=== PATIENT | female | born 1965 | race Caucasian/White ===

== ENCOUNTER 2021-11-20 15:28 | Outpatient (CLI) | payer BC, SELFPAY ==
--- NOTE | 2021-11-20 | US_ITS ---
WS: [id number] INDICATION: RIGHT medial lower leg swelling and pain TECHNIQUE: Ultrasound soft tissue area of concern FINDINGS: The area of concern, RIGHT lower leg medially, there is a short segment of suspected superf icial thrombus. This is just above the ankle and corresponds to the area of interest. No other suspic ious findings. US/US soft tissue/extremity [id number] IMPRESSION: Short segment of superficial thrombus in the RIGHT lower leg medial ly just above the ankle in the area of concern. [employer] notified physicians office at the time of examination.
== END 2021-11-20 15:29 | disposition home or self-care (01) ==
PROVIDERS: PCP Family Medicine; Visit Provider Family Medicine
DX: R22.41 Localized swelling, mass and lump, right lower limb (principal)
CPT/HCPCS: 76882

== ENCOUNTER → 2024-01-26 16:42 | Outpatient (BNVA) | payer BC, SELFPAY | PROVIDERS: PCP Family Medicine; Visit Provider Nurse Practitioner | DX: R30.0 Dysuria (principal) | CPT/HCPCS: 81000 ==

== ENCOUNTER → 2024-12-04 13:54 | Outpatient (BNVA) | payer BC, SELFPAY | PROVIDERS: PCP Family Medicine; Visit Provider Nurse Practitioner | DX: M19.042 Primary osteoarthritis, left hand (principal) | CPT/HCPCS: 73130 ==

== ENCOUNTER 2025-01-24 07:26 | Outpatient (RCR) | payer BC, SELFPAY | END 2025-02-08 23:59 | disposition home or self-care (01) | LOC: SPT 07:26 | PROVIDERS: Visit Provider Orthopaedic Surgery | DX: S92.312D Displaced fracture of first metatarsal bone, left foot, subsequent encounter for fracture with routine healing (principal); X58.XXXD Exposure to other specified factors, subsequent encounter | CPT/HCPCS: 97110; 97112; 97140; 97161 ==

== ENCOUNTER 2025-02-09 05:00 | Outpatient (RCR) | payer BC, SELFPAY | END 2025-03-10 23:59 | disposition home or self-care (01) | LOC: SPT 05:00 | PROVIDERS: Visit Provider Orthopaedic Surgery | DX: S92.312D Displaced fracture of first metatarsal bone, left foot, subsequent encounter for fracture with routine healing (principal); S92.322D Displaced fracture of second metatarsal bone, left foot, subsequent encounter for fracture with routine healing; S92.332D Displaced fracture of third metatarsal bone, left foot, subsequent encounter for fracture with routine healing; S92.342D Displaced fracture of fourth metatarsal bone, left foot, subsequent encounter for fracture with routine healing; S92.352D Displaced fracture of fifth metatarsal bone, left foot, subsequent encounter for fracture with routine healing; X58.XXXD Exposure to other specified factors, subsequent encounter | CPT/HCPCS: 97110; 97112; 97140; 97530 ==